=== PATIENT | female | born 1975 | race African-American/Black ===

== ENCOUNTER 2019-11-24 05:20 | Day surgery (SDC) | payer MEDICAID ==
[~2019-11-24] VITALS: Ht 170.2 cm; Wt 114.3 kg
[2019-11-24 06:29] LABS: UCG SCREEN NEGATIVE
[2019-11-24] MEDS ORDERED: LACTATED RINGERS 1,000 ML IV SCH (06:30)
[2019-11-24] MEDS ORDERED: LIDOCAINE HCL 1% 20ML VIAL (Pyxis) INJ ONE (06:48)
[2019-11-24] MEDS ORDERED: SKIN ADHESIVE 0.7 GM EA TOP ONE (06:48)
[2019-11-24] MEDS ORDERED: BACITRACIN 50,000 UNITS/VIAL ONE (06:49)
[2019-11-24] MEDS ORDERED: BUPIVACAINE HCL 0.5% (5MG/ML) 50ML ONE (06:50)
[2019-11-24] MEDS ORDERED: ALBU18HF2 IH (06:57)
[2019-11-24] MEDS ORDERED: PROPOFOL 200MG/20ML VIAL IV ONE (07:25)
[2019-11-24] MEDS ORDERED: MIDAZOLAM HCL 2 MG/2 ML VIAL ONE (07:25)
[2019-11-24] MEDS ORDERED: FENTANYL CITRATE/PF 50MCG/ML 2ML VIAL ONE (07:25)
[2019-11-24] MEDS ORDERED: LIDOCAINE HCL/PF 1% 10 MG/ML 5ML VIAL ONE (07:26)
[2019-11-24] MEDS ORDERED: ONDANSETRON HCL 4MG/2ML INJ ONE (07:27)
[2019-11-24] MEDS ORDERED: METOCLOPRAMIDE HCL 10MG/2ML VIAL ONE (07:27)
[2019-11-24] MEDS ORDERED: CEFAZOLIN SODIUM 1000MG/VIAL ONE (07:27)
[2019-11-24] MEDS ORDERED: KETOROLAC 30MG/ML VIAL ONE (07:27)
[2019-11-24] MEDS ORDERED: HYDROMORPHONE HCL/PF 2MG/ML CPJ IV PRN (08:00)
[2019-11-24] MEDS ORDERED: MEPERIDINE HCL/PF 25MG/ML CPJ IV PRN (08:00)
[2019-11-24] MEDS ORDERED: ONDANSETRON HCL 4MG/2ML INJ IV PRN (08:00)
== END 2019-11-24 10:05 | disposition home or self-care (01) ==
LOC: OR 05:20
PROVIDERS: ATTEND Specialist
DX: D17.24 Benign lipomatous neoplasm of skin and subcutaneous tissue of left leg (principal); J45.909 Unspecified asthma, uncomplicated; Z79.899 Other long term (current) drug therapy; Z88.1 Allergy status to other antibiotic agents; Z88.8 Allergy status to other drugs, medicaments and biological substances
CPT/HCPCS: 27337; 81025; 88304; J0690; J1885; J2250; J2405; J2704; J2765; J3010; J3490